=== PATIENT | male | born 1995 | race African-American/Black ===

== ENCOUNTER 2016-03-30 15:22 | Emergency (ER) | payer BC ==
[~2016-03-30] VITALS: Ht 167.6 cm; Wt 102.7 kg
[~2016-03-30 15:22] MED LIST: LEVAQUIN500 MG PO; LEVAQUIN750 MG PO; MOTRIN800 MG PO; PREDNISONE20 MG PO; TESSALON PERLE100 MG PO; TRAMADOL HCL50 MG PO
[2016-03-30 15:28] VITALS: BP 127/59
[2016-03-30 16:31] LABS: INFLUENZA A VIRAL ANTIGEN POSITIVE; INFLUENZA B VIRAL ANTIGEN NEGATIVE
[2016-03-30] MEDS ORDERED: TAMIFLU75 MG PO (16:48)
== END 2016-03-30 16:57 | disposition home or self-care (01) ==
LOC: EME 15:22
DX: J10.1 Influenza due to other identified influenza virus with other respiratory manifestations (principal); F17.200 Nicotine dependence, unspecified, uncomplicated
CPT/HCPCS: 87502; 99281; 99284